=== PATIENT | male | born 1955 | race Caucasian/White ===

== ENCOUNTER → 2017-08-25 | Outpatient (CLI) | payer OTHER ==
[~2017-08-25] MED LIST: GADOBUTROL 10 ML VIAL IVP ONE
== END ==
LOC: FIMAGING 18:25
PROVIDERS: ATTEND Internal Medicine Hematology & Oncology
DX: M85.80 Other specified disorders of bone density and structure, unspecified site (principal); M51.36 Other intervertebral disc degeneration, lumbar region; M51.26 Other intervertebral disc displacement, lumbar region
CPT/HCPCS: A9585

== ENCOUNTER 2017-09-13 10:58 | Day surgery (SDC) | payer OTHER ==
[2017-09-13] MEDS ORDERED: ALTEPLASE 2 MG VIAL IVP PRN (11:29)
[2017-09-13] MEDS ORDERED: MEPERIDINE 25 MG/ML SYR IVP PRN (11:29)
[2017-09-13] MEDS ORDERED: fentaNYL 100 MCG/2 ML INJ IVP PRN (11:29)
[2017-09-13] MEDS ORDERED: MIDAZOLAM 2 MG/2 ML VIAL IVP PRN (11:29)
[2017-09-13] MEDS ORDERED: HEPARIN 10,000 UNIT/10 ML MDV IVP PRN (11:29)
[2017-09-13] MEDS ORDERED: PROTAMINE SULFATE 50 MG/5 ML VIAL IVP PRN (11:29)
[2017-09-13] MEDS ORDERED: FLUMAZENIL 0.5 MG/5 ML MDV IVP PRN (11:29)
[2017-09-13] MEDS ORDERED: NALOXONE HCL 0.4 MG/ML INJ IVP PRN (11:29)
[2017-09-13] MEDS ORDERED: GLUCAGON HCL 1 MG VIAL IVP PRN (11:29)
[2017-09-13] MEDS ORDERED: NS 1,000 ML IV SCH (11:30)
[2017-09-13 11:45] LABS: INR 0.98 (0.83-1.16); PROTIME(PATIENT) 12.9 SEC (12.0-15.0)
[2017-09-13 11:46] LABS: APTT 29.8 SEC (23.0-38.0)
[2017-09-13 11:52] VITALS: PULSE 65; RESP 14; TEMP 99
--- NOTE | 2017-09-13 12:08 | PDPROPOC ---
Sedation Plan of Care Sedation Plan of Care: vital signs stable, mental status noted, patient educated of risks, benefits, alternatives, patient can tolerate sedation ASA Classification: ASA 2 Planned drugs: fentanyl, midazolam Mallampati Score: Class 1 Mallampati Reference Image: Patient passed 3-3-2 rule?: Yes
--- NOTE | 2017-09-13 12:11 | PDGENHP ---
History & Physical Chief Complaint: L5 LT FOCAL ENHANCING LESION History of Present Illness: H/O LIPOSARCOMA. EVALUATE METASTASIS. Pertinent Past, Social, Family History: HERNIAS, CATARACTS, RETINA, ORCHIECTOMY Relevant Physical Exam: N/A Cardiorespiratory Assessment: CTA, RRR
[2017-09-13] MEDS ORDERED: BUPIVACAINE 0.5% 30 ML SDV ONE (13:18)
[2017-09-13] MEDS ORDERED: LIDOCAINE 1% 300 MG/30 ML SDV ONE (13:19)
--- NOTE | 2017-09-13 13:36 | PDRADPN ---
Radiology Procedure Note Date of Procedure: 09/13/17 Radiologist: Gita Francis Anesthesia: IV Sedation (fentanyl and versed) Pre-op Diagnosis: L5 lesion Post-op Diagnosis: same Indication: h/o liposarcoma Procedure: L5 bx, LT Finding(s): single core obtained Inf/Abcess present in the surg proc area at time of surgery?: No EBL: Minimal Complications: none
[2017-09-13 14:48] VITALS: BP 111/79; O2SAT 97
== END 2017-09-13 14:58 | disposition home or self-care (01) ==
LOC: FIMAGING 10:58
PROVIDERS: ATTEND Internal Medicine Hematology & Oncology
PROC: 0QB03ZX Excision of Lumbar Vertebra, Percutaneous Approach, Diagnostic (ICD-10-PCS; principal; 2017-09-13 13:43)
DX: C79.51 Secondary malignant neoplasm of bone (principal)
CPT/HCPCS: J2250; J2310; J3010